=== PATIENT | male | born 1935 ===

== ENCOUNTER 2017-11-11 10:14 | Inpatient (IN) | payer MEDICARE, OTHER ==
[2017-11-11] MEDS ORDERED: SODIUM CHLORIDE 0.9% 1,000 ML IV STA (10:34)
[2017-11-11] MEDS ORDERED: MECLIZINE 12.5 MG TAB PO STA (10:37)
[2017-11-11] MEDS ORDERED: METOCLOPRAMIDE 5 MG/ML 2 ML VIAL IVP STA (10:37)
--- NOTE | 2017-11-11 10:41 | ED ---
General Adult HPI - General Chief complaint: Dizziness Stated complaint: Dizziness/not able to urinate Time Seen by Provider: 11/11/17 10:27 Source: patient, family, RN notes reviewed Mode of arrival: wheelchair Limitations: language barrier (Family is present to help translate) - History of Present Illness Initial comments: Patient is a pleasant 82-year-old male presenting to the emergency department with family for dizziness. Onset was this morning when he woke. Patient feels a spinning type sensation. Patient is and has limited Italian capabilities. Family is present and helps translate. Patient does admit to having headache. There is no confusion. Patient is stating appropriate words. Family states there has been some limited slurred speech. No isolated area of weakness. Patient did seem to have some sort of difficulty with ambulation. - Related Data Home Medications Medication Instructions Recorded Confirmed Carbidopa-Levodopa ER 25-100Mg 1 tab PO TID 11/11/17 11/11/17 [Sinemet ER 25-100] Cholecalciferol (Vitamin D3) 2,000 unit PO DAILY 11/11/17 11/11/17 [Vitamin D3] Clopidogrel [Plavix] 75 mg PO DAILY 11/11/17 11/11/17 Losartan [Cozaar] 50 mg PO DAILY 11/11/17 11/11/17 Pioglitazone [Actos] 15 mg PO DAILY 11/11/17 11/11/17 metFORMIN HCL [Glucophage] 500 mg PO DAILY 11/11/17 11/11/17 Allergies Allergy/AdvReac Type Severity Reaction Status Date / Time No Known Allergies Allergy Verified 11/11/17 13:02 Review of Systems ROS Statement: Those systems with pertinent positive or pertinent negative responses have been documented in the HPI. ROS Other: All systems not noted in ROS Statement are negative. Constitutional: Denies: fever Eyes: Denies: eye pain ENT: Denies: ear pain Respiratory: Denies: cough Cardiovascular: Denies: chest pain Endocrine: Denies: fatigue Gastrointestinal: Denies: abdominal pain Genitourinary: Denies: dysuria Musculoskeletal: Denies: back pain Skin: Denies: rash Neurological: Reports: headache, abnormal gait, vertigo. Denies: weakness, confusion Past Medical History Past Medical History: CVA/TIA, Diabetes Mellitus, Hyperlipidemia, Hypertension History of Any Multi-Drug Resistant Organisms: None Reported Additional Past Surgical History / Comment(s): Prostate surgery in [place] Past Psychological History: No Psychological Hx Reported Smoking Status: Current some day smoker Past Alcohol Use History: None Reported Past Drug Use History: None Reported General Exam Limitations: language barrier General appearance: alert, in no apparent distress Head exam: Present: atraumatic Eye exam: Present: normal appearance, PERRL, EOMI. Absent: nystagmus ENT exam: Present: normal oropharynx Neck exam: Present: normal inspection Respiratory exam: Present: normal lung sounds bilaterally Cardiovascular Exam: Present: regular rate, normal rhythm GI/Abdominal exam: Present: soft. Absent: tenderness Extremities exam: Present: normal inspection Neurological exam: Present: alert, CN II-XII intact. Absent: motor sensory deficit Expanded Patient oriented to: Present: person, place. Absent: time (Family believes this is likely normal for him) Psychiatric exam: Present: normal affect, normal mood Skin exam: Present: normal color Course Vital Signs 11/11/17 11/11/17 10:19 12:55 Temperature 97.8 F Pulse Rate 61 60 Respiratory 18 18 Rate Blood Pressure 136/64 137/67 O2 Sat by Pulse 96 100 Oximetry EKG Findings - EKG Comments: EKG Findings:: Sinus rhythm at 65. First-degree AV block with a NE of 262. QRS 92. QT 424. QTC 440. Normal axis. Borderline inferior Q waves. No acute ST change. Medical Decision Making - Medical Decision Making Patient reevaluated and is having some improvement following medications. Secondary to concerns for slurred speech and abnormal gait patient will be held for neurology evaluation. Case discussed in detail with Dr. Smyth, who will admit. - Lab Data Result diagrams: 11/11/17 11:00 11/11/17 11:00 Lab Results 11/11/17 11/11/17 11/11/17 Range/Units 11:00 11:00 11:00 WBC 3.8 (3.8-10.6) k/uL RBC 4.28 L (4.30-5.90) m/uL Hgb 13.6 (13.0-17.5) gm/dL Hct 40.3 (39.0-53.0) % MCV 94.1 (80.0-100.0) fL MCH 31.9 (25.0-35.0) pg MCHC 33.9 (31.0-37.0) g/dL RDW 12.9 (11.5-15.5) % Plt Count 251 (150-450) k/uL Neutrophils % 56 % Lymphocytes % 31 % Monocytes % 7 % Eosinophils % 3 % Basophils % 0 % Neutrophils # 2.1 (1.3-7.7) k/uL Lymphocytes # 1.2 (1.0-4.8) k/uL Monocytes # 0.3 (0-1.0) k/uL Eosinophils # 0.1 (0-0.7) k/uL Basophils # 0.0 (0-0.2) k/uL PT 9.9 (9.0-12.0) sec INR 1.0 (<1.2) APTT 23.1 (22.0-30.0) sec Sodium 138 (137-145) mmol/L Potassium 4.3 (3.5-5.1) mmol/L Chloride 100 (98-107) mmol/L Carbon Dioxide 27 (22-30) mmol/L Anion Gap 11 mmol/L BUN 19 (9-20) mg/dL Creatinine 0.59 L (0.66-1.25) mg/dL Est GFR (CKD-EPI)AfAm >90 (>60 ml/min/1.73 sqM) Est GFR (CKD-EPI)NonAf >90 (>60 ml/min/1.73 sqM) Glucose 270 H (74-99) mg/dL Calcium 9.4 (8.4-10.2) mg/dL Total Bilirubin 0.5 (0.2-1.3) mg/dL AST 17 (17-59) U/L ALT 23 (21-72) U/L Alkaline Phosphatase 103 (38-126) U/L Total Protein 7.1 (6.3-8.2) g/dL Albumin 4.1 (3.5-5.0) g/dL Disposition Clinical Impression: Transient cerebral ischemia Disposition: ADMITTED IP TO THIS HOSP Is patient prescribed a controlled substance at d/c from ED?: No Referrals: None,Stated [Primary Care Provider] - 1-2 days Decision Time: 13:14
[2017-11-11 11:09] LABS: Basophils % (A) 0 %; Eosinophils # (A) 0.1 k/uL (0-0.7); Eosinophils % (A) 3 %; HCT 40.3 % (39.0-53.0); HGB 13.6 gm/dL (13.0-17.5); Lymphocytes # (A) 1.2 k/uL (1.0-4.8); Lymphocytes % (A) 31 %; MCH 31.9 pg (25.0-35.0); MCHC 33.9 g/dL (31.0-37.0); MCV 94.1 fL (80.0-100.0); Monocytes # (A) 0.3 k/uL (0-1.0); Monocytes % (A) 7 %; Neutrophils # (A) 2.1 k/uL (1.3-7.7); Neutrophils % (A) 56 %; Platelet Count 251 k/uL (150-450); RBC 4.28 m/uL (4.30-5.90); RDW 12.9 % (11.5-15.5); WBC 3.8 k/uL (3.8-10.6)
[2017-11-11 11:17] LABS: Partial Thromboplastin Time 23.1 sec (22.0-30.0); Prothrombin Time 9.9 sec (9.0-12.0)
[2017-11-11 11:22] LABS: ALT 23 U/L (21-72); AST 17 U/L (17-59); Albumin 4.1 g/dL (3.5-5.0); Alkaline Phosphatase 103 U/L (38-126); Anion Gap 11 mmol/L; Blood Urea Nitrogen 19 mg/dL (9-20); Calcium 9.4 mg/dL (8.4-10.2); Carbon Dioxide 27 mmol/L (22-30); Chloride 100 mmol/L (98-107); Glucose 270 mg/dL (74-99); Potassium 4.3 mmol/L (3.5-5.1); Sodium 138 mmol/L (137-145); Total Bilirubin 0.5 mg/dL (0.2-1.3); Total Protein 7.1 g/dL (6.3-8.2)
--- NOTE | 2017-11-11 12:06 | CT ---
EXAMINATION TYPE: CT brain wo con DATE OF EXAM: 11/11/2017 COMPARISON: None HISTORY: 82-year-old male with vertigo, weakness and dizziness. History of recent CVA TECHNIQUE: Examination was done in axial plane without intravenous contrast. Coronal and sagittal r econstructions performed. CT DLP: 1162.8 mGycm Automated exposure control for dose reduction was used. FINDINGS: Large area of encephalomalacia anterior left parietal lobe extending into the posterior left temporal lobe. Additional encephalomalacia within the lateral inferior left frontal lobe. There is central cerebral atrophy with asymmetric greater ventricular enlargement on the left seconda ry to the volume loss. There is no evidence of acute intracranial hemorrhage, acute ischemic changes, mass, mass-effect, or extra-axial fluid collection. There is no effacement of cerebral sulci or basal subarachnoid cister ns. There is no midline shift. Chang-white matter distinction is preserved. Paranasal sinuses and mastoid air cells are well pneumatized. Orbits and globes are intact. IMPRESSION: Large areas of encephalomalacia in the left temporoparietal and left lateral and inferior frontal lob es compatible with prior infarcts. Cerebral atrophy. No acute intracranial abnormality seen.
[2017-11-11] MEDS ORDERED: ASPIRIN 325 MG TAB PO STA (13:15)
--- NOTE | 2017-11-11 14:32 | US ---
EXAMINATION TYPE: US carotid duplex BILAT DATE OF EXAM: 11/11/2017 COMPARISON: NONE CLINICAL HISTORY: Stenosis. weakness, dizziness EXAM MEASUREMENTS: RIGHT: Peak Systolic Velocity (PSV) cm/sec ----- Right CCA: 97.7 ----- Right ICA: 85.3 ----- Right ECA: 87.9 ICA/CCA ratio: 0.9 RIGHT: End Diastole cm/sec ----- Right CCA: 17.5 ----- Right ICA: 23.2 ----- Right ECA: 0.0 LEFT: Peak Systolic Velocity (PSV) cm/sec ----- Left CCA: 83.4 ----- Left ICA: 65.8 ----- Left ECA: 85.6 ICA/CCA ratio: 0.8 LEFT: End Diastole cm/sec ----- Left CCA: 7.6 ----- Left ICA: 7.6 ----- Left ECA: 0.0 VERTEBRALS (direction of flow): Right Vertebral: Antegrade Left Vertebral: Unable to visualize Rhythm: Normal IMPRESSION: There is antegrade flow in the right vertebral artery. No flow seen in the left vertebra l artery which is presumably occluded. Images in measurements suggest less than 20% stenosis in both internal carotid arteries. Criteria for Assigning % of Stenosis / Diameter reduction (Estimation based on the indirect measurements of the internal carotid artery velocities (ICA PSV). 1. Normal (no stenosis)=ICA PSV < 125 cm/s: ratio < 2.0: ICA EDV<40 cm/s. 2. Less than 50% stenosis=ICA PSV < 125 cm/s: ratio < 2.0: ICA EDV<40 cm/s. 3. 50 to 69% stenosis=ICA PSV of 125 to 230 cm/s: ration 2.0 ? 4.0: ICA EDV 40-100 cm/s. 4. Greater than 70% stenosis to near occlusion= ICA PSV > 230 cm/s: ratio > 4.0: ICA EDV > 100 cm/s. 5. Near occlusion= ICA PSV velocities may be low or undetectable: variable ratio and ICA EDV. 6. Total occlusion=unable to detect flow.
[2017-11-11] MEDS: SODIUM CHLORIDE 0.9% 1,000 ML IV SCH (15:28)
[2017-11-11] MEDS: CARBIDOPA-LEVODOPA ER 25-100MG 1 EACH TABLET.ER PO SCH ×2 (15:29→20:48)
[2017-11-11 17:07] LABS: Glucose,Whole Blood 211 mg/dL (75-99)
[2017-11-11] MEDS: INSULIN ASPART 100 UNIT/ML 1 ML 10 ML VIAL SQ SCH ×2 (17:32→20:48)
[2017-11-11 20:36] LABS: Glucose,Whole Blood 203 mg/dL (75-99)
--- NOTE | 2017-11-11 21:53 | P.CNNES ---
History of Present Illness Consult date: 11/11/17 History of Present Illness: The patient is an 82-year-old right-handed male who recently moved from [place] to 8 weeks ago. His daughter is at the bedside as well as his grandson. History is obtained from the patient's grandson who is interpreting the history from his mother who does not speaking wish and the patient himself does not speak Singaporean. Early the patient looked tired yesterday and on his walk to the bathroom he lost control of his bladder. This morning he woke up with dizziness. He didn't feel like eating breakfast. He felt his legs were weak and wobbly. He was not able to walk properly. He had no nausea or vomiting but he felt dizzy. Apparently he felt lightheaded sensation. He also felt some numbness on the chin area around 11 AM today. At 9:30 this morning he developed a headache. The patient was at came to the emergency room and was admitted to the hospital with dizziness. The patient has been very sleepy after receiving some medication in the emergency room. His dizziness went away after the medication was given. Initially the patient was found to have some facial droop according to the daughter but currently that facial droop is gone. The patient has a history of previous left-sided stroke which left him with some right-sided paralysis. The patient had a CT of the brain in the emergency room which showed large areas of encephalomalacia in the left temporoparietal and left lateral and inferior frontal lobes compatible with prior infarcts. There was also cerebral atrophy. No acute an intracranial abnormality was seen. He had a carotid ultrasound today which showed antegrade flow in the right vertebral and no flow in the left vertebral artery. There was less than 20% stenosis in both internal carotid arteries patient has been taking Plavix. Apparently he has been taking this medication regularly without missing a dose according to the daughter. Patient's risk factor for stroke includes diabetes hyperlipidemia hypertension and previous stroke Review of Systems ROS unobtainable: due to mental status Past Medical History Past Medical History: CVA/TIA, Diabetes Mellitus, Hyperlipidemia, Hypertension, Memory Impairment Additional Past Medical History / Comment(s): possibly Parkinsons. recently was with daughter in [place]- son did not receive clear information from [place] family about patient's history History of Any Multi-Drug Resistant Organisms: None Reported Additional Past Surgical History / Comment(s): Prostate surgery in [place] Past Anesthesia/Blood Transfusion Reactions: No Reported Reaction Smoking Status: Current some day smoker - Past Family History Son(s) Additional Family Medical History / Comment(s): had appendix removed- no other issues - still living Medications and Allergies Home Medications Medication Instructions Recorded Confirmed Type Carbidopa-Levodopa ER 25-100Mg 1 tab PO TID 11/11/17 11/11/17 History [Sinemet ER 25-100] Cholecalciferol (Vitamin D3) 2,000 unit PO DAILY 11/11/17 11/11/17 History [Vitamin D3] Clopidogrel [Plavix] 75 mg PO DAILY 11/11/17 11/11/17 History Losartan [Cozaar] 50 mg PO DAILY 11/11/17 11/11/17 History Pioglitazone [Actos] 15 mg PO DAILY 11/11/17 11/11/17 History metFORMIN HCL [Glucophage] 500 mg PO DAILY 11/11/17 11/11/17 History Allergies Allergy/AdvReac Type Severity Reaction Status Date / Time No Known Allergies Allergy Verified 11/11/17 13:02 Physical Examination - Vital Signs Vital Signs: Vital Signs Temp Pulse Pulse Resp BP BP Pulse Ox 11/11/17 20:00 96.9 F L 61 15 147/63 100 11/11/17 15:23 97.4 F L 6 L 16 146/72 100 11/11/17 14:44 65 18 137/67 100 11/11/17 12:55 60 18 137/67 100 11/11/17 10:19 97.8 F 61 18 136/64 96 Intake and Output 11/11/17 11/11/17 11/11/17 06:59 14:59 22:59 Intake Total 500 Output Total 200 Balance 300 Intake: IV 300 Sodium Chloride 0.9% 1, 300 000 ml @ 100 mls/hr IV . Q10H ON LICENSE OF [facility] Rx#:[id number] Oral 200 Output: Urine 200 Other: Voiding Method Urinal Incontinent # Voids 1 Weight 70.76 kg - Constitutional General appearance: average body habitus - EENT EENT: PERRL, hearing intact, vision intact - Respiratory Respiratory: lungs clear - Cardiovascular Cardiovascular: regular rate, normal S1, normal S2 - Integumentary Integumentary: normal - Neurologic Neurologic examination: Mental status: The patient had an filter tip catcher. He was awake and able to give his name and he knew he was at the hospital. He answered questions appropriately. Cranial nerve examination: PERRL, EOMI, VFF, face symmetric, tongue midline Speech examination: other (Patient was able to speak however he was unable to speak Singaporean and had family to interpret) Sensorimotor examination: intact Detailed motor examination: other (Right-sided weakness apparently old from previous stroke) - Psychiatric Psychiatric: cooperative Results - Laboratory Findings CBC and BMP: 11/11/17 11:00 11/11/17 11:00 Abnormal Lab Findings: Abnormal Labs 11/11/17 11/11/17 11/11/17 11:00 11:00 17:00 RBC 4.28 L Creatinine 0.59 L Glucose 270 H POC Glucose (mg/dL) 211 H 11/11/17 20:34 RBC Creatinine Glucose POC Glucose (mg/dL) 203 H Assessment and Plan (1) Transient cerebral ischemia Current Visit: Yes Status: Acute SNOMED Code(s): 227417190 Plan: The patient is an 82-year-old male with history of previous stroke who presents with dizziness. The face patient apparently also had some unsteadiness of gait weakness in the legs facial droop and chin numbness. His dizziness has resolved. His facial droop also has resolved. The chin numbness is gone. And he has not experienced any new weakness. Patient is admitted to the hospital with possible TIA. Patient does have residual right-sided weakness from previous old stroke. The patient had a carotid ultrasound which showed less than 20% stenosis of both internal carotid arteries as well as the no flow in the left vertebral artery which is presumably occluded. It is unclear whether this occlusion is old from previous stroke. Consider vascular surgery consultation regarding vertebral artery occlusion. Will continue Plavix and aspirin for now. Also recommend echocardiogram and follow-up CT brain
[2017-11-12 06:18] LABS: Glucose,Whole Blood 139 mg/dL (75-99)
[2017-11-12] MEDS: INSULIN ASPART 100 UNIT/ML 1 ML 10 ML VIAL SQ SCH ×4 (06:30→21:08)
--- NOTE | 2017-11-12 07:53 | HP ---
HISTORY AND PHYSICAL CHIEF COMPLAINT: Possible CVA. HISTORY OF PRESENT ILLNESS: This is the first admission for this 82-year-old male. He had a CVA last year. He apparently woke up on the morning of admission, having trouble speaking and seemed to be lethargic and confused. He was brought to the emergency room by his family. It was thought that this may represent a TIA. REVIEW OF SYSTEMS: Cannot be obtained from the patient. He has a little bit of difficulty speaking and is not a good communicator. Past medical, family history, personal and social histories reveal that he is on Cozaar, carbidopa levodopa, Plavix, metformin, and Actos. He is not thought to be allergic to anything. The remainder of the history is unobtainable. PHYSICAL EXAM: VITAL SIGNS: Blood pressure 134/64 with a pulse 61, temperature is 97.8. Respirations were 20. GENERAL: In general he appeared to be well developed, well nourished, in no acute distress and somewhat lethargic. HEENT: Head, ears, eyes, nose, mouth, and throat were normal and carotids are normal. NECK: Neck veins not distended. CHEST: Chest is clear. CARDIOVASCULAR: Cardiac exam demonstrated normal sinus rhythm and no murmurs or extra sounds. ABDOMEN: Abdomen is soft, nontender. EXTREMITIES: Normal. NEUROLOGICALLY: Cranial nerves were intact and sensory motor exam as well, but he was a little bit lethargic and seemed to be confused and had some slight expressive aphasia. IMPRESSION: He was admitted to the hospital with diagnoses of: 1. Transient ischemic attack. 2. Possible impending cerebrovascular accident. 3. Previous cerebrovascular accident. 4. Parkinson's disease. 5. Type 2 diabetes mellitus. PLAN: 1. Bed rest. 2. IV fluids. 3. Hemoglobin A1c. 4. Carotid duplex imaging. 5. Echocardiogram. 6. Control blood sugars. 7. Lipid profile. MMODL / IJN: [id number] /
[2017-11-12 08:29] LABS: Cholesterol 141 mg/dL (<200); HDL Cholesterol 43 mg/dL (40-60); LDL Cholesterol,Calculated 70 mg/dL (0-99); Triglycerides 141 mg/dL (<150)
[2017-11-12 08:57] VITALS: BMI 24.9
[2017-11-12 10:21] LABS: Hemoglobin A1C 9.4 % (4.0-6.0)
[2017-11-12] MEDS: CLOPIDOGREL 75 MG TAB PO SCH (10:34)
[2017-11-12] MEDS: LOSARTAN 50 MG TAB PO SCH (10:34)
[2017-11-12] MEDS: PIOGLITAZONE 15 MG TAB PO SCH (10:35)
[2017-11-12] MEDS: SODIUM CHLORIDE 0.9% 1,000 ML IV SCH ×3 (10:35→19:46)
[2017-11-12 11:14] LABS: Glucose,Whole Blood 234 mg/dL (75-99)
[2017-11-12] MEDS: ASPIRIN 325 MG TAB PO SCH (12:08)
[2017-11-12] MEDS: CARBIDOPA-LEVODOPA ER 25-100MG 1 EACH TABLET.ER PO SCH ×3 (12:22→21:09)
--- NOTE | 2017-11-12 13:56 | CT ---
EXAMINATION TYPE: CT brain wo con DATE OF EXAM: 11/12/2017 COMPARISON: 11/11/2017 HISTORY: CVA CT DLP: 980.5 mGycm Automated exposure control for dose reduction was used. FINDINGS: Large area of encephalomalacia anterior left parietal lobe extending into the posterior left temporal lobe. Additional encephalomalacia within the lateral inferior left frontal lobe. There is moderate generalized degenerative change. Area of low attenuation white matter bilaterally i s nonspecific but most typical remote microvascular ischemia. No acute hemorrhage. Ventricular system is slightly greater centrally which may represent a component of normal pressure hydrocephalus. Prominent cisterna magna noted. Changes of chronic sinusitis noted. Calvarium intact. IMPRESSION: DEGENERATIVE AND NONSPECIFIC WHITE MATTER CHANGES MOST TYPICAL REMOTE ISCHEMIA. NO ACUTE HEMORRHAGE. ENCEPHALOMALACIA WITHIN THE LEFT TEMPORAL PARIETAL AND LEFT FRONTAL LOBE SUGGESTIVE OF PREVIOUS INFAR CT. PER-INFARCT RECENT ISCHEMIA NOT EXCLUDED. CORRELATE WITH MRI CLINICALLY WARRANTED.
--- NOTE | 2017-11-12 16:33 | PN ---
PROGRESS NOTE DATE OF SERVICE: 11/12/2017 CHIEF COMPLAINT: TIA. HISTORY OF PRESENT ILLNESS: This gentleman is apparently doing better. Family is at bedside and states that his speech is greatly improved. PHYSICAL EXAM: He has no obvious sensory motor or cranial nerve findings. Carotids normal. Chest is clear. Cardiac exam is normal. IMPRESSION: Transient ischemic attack. PLAN: Continue to workup. MMODL / IJN: [id number] /
[2017-11-12 16:42] LABS: Glucose,Whole Blood 210 mg/dL (75-99)
--- NOTE | 2017-11-12 18:09 | P.PN ---
Subjective Progress Note Date: 11/12/17 The patient is an 82-year-old man with history of prior stroke with right-sided weakness who presented to the hospital with possible TIA. Today the patient is doing much better. His family states his speech is has come back to baseline. He should continue on Plavix daily for stroke prevention. He has had a follow- up CT brain today which showed no changes from prior study. The patient has no new complaints. He has been on Plavix since his previous stroke one year ago which left him with right-sided weakness. Computed tomography scan of the brain does show old infarct on the left hemisphere. Objective - Vital Signs Vital signs: Vital Signs Temp 97.6 F 11/12/17 15:55 Pulse 66 11/12/17 15:55 Resp 18 11/12/17 15:55 BP 131/63 11/12/17 15:55 Pulse Ox 98 11/12/17 15:55 Intake & Output 11/11/17 11/12/17 11/12/17 18:59 06:59 18:59 Intake Total 500 700 Output Total 200 Balance 300 700 Weight 70.76 kg 70 kg 70 kg Intake: IV 300 700 Sodium Chloride 0.9% 1, 300 700 000 ml @ 100 mls/hr IV . Q10H [facility] Rx#:[id number] Oral 200 Output: Urine 200 Other: Voiding Method Urinal Urinal Urinal Incontinent Incontinent Incontinent # Voids 1 1 - Constitutional General appearance: Present: cooperative - EENT Eyes: Present: fundus normal - Respiratory Respiratory: bilateral: CTA - Cardiovascular Rhythm: regular - Neurologic Neurologic: Present: CNII-XII intact - Musculoskeletal Musculoskeletal: Present: right sided weakness - Psychiatric Psychiatric: Present: appropriate affect - Labs CBC & Chem 7: 11/11/17 11:00 11/11/17 11:00 Labs: Abnormal Lab Results - Last 24 Hours (Table) 11/11/17 11/11/17 11/12/17 Range/Units 11:00 20:34 06:07 POC Glucose (mg/dL) 203 H 139 H (75-99) mg/dL Hemoglobin A1c 9.4 H (4.0-6.0) % 11/12/17 11/12/17 Range/Units 11:11 16:39 POC Glucose (mg/dL) 234 H 210 H (75-99) mg/dL Hemoglobin A1c (4.0-6.0) % Assessment and Plan (1) Transient cerebral ischemia Current Visit: Yes Status: Acute SNOMED Code(s): 184397502 Plan: The patient is an 82-year-old male with history of previous stroke who presented with dizziness. The patient also had some unsteadiness of gait weakness in the legs facial droop and chin numbness. His dizziness has resolved. His speech is improved. The patient is doing much better and is also able to walk today. The patient may have had a TIA. Recommend continue patient on Plavix and baby aspirin
[2017-11-12 20:50] LABS: Glucose,Whole Blood 160 mg/dL (75-99)
[2017-11-13 06:25] LABS: Glucose,Whole Blood 169 mg/dL (75-99)
[2017-11-13] MEDS: SODIUM CHLORIDE 0.9% 1,000 ML IV SCH (06:40)
[2017-11-13] MEDS: INSULIN ASPART 100 UNIT/ML 1 ML 10 ML VIAL SQ SCH ×2 (06:40→12:31)
[2017-11-13] MEDS: PIOGLITAZONE 15 MG TAB PO SCH (09:35)
[2017-11-13] MEDS: LOSARTAN 50 MG TAB PO SCH (09:35)
[2017-11-13] MEDS: CARBIDOPA-LEVODOPA ER 25-100MG 1 EACH TABLET.ER PO SCH (09:35)
[2017-11-13] MEDS: CLOPIDOGREL 75 MG TAB PO SCH (09:35)
--- NOTE | 2017-11-13 09:46 | ECHOF ---
Referral Reason:Thrombus MEASUREMENTS -------- HEIGHT: 167.6 cm WEIGHT: 69.9 kg BP: 147/67 RVIDd: 3.1 cm (< 3.3) IVSd: 1.1 cm (0.6 - 1.1) LVIDd: 4.1 cm (3.9 - 5.3) LVPWd: 1.2 cm (0.6 - 1.1) IVSs: 1.6 cm LVIDs: 2.6 cm LVPWs: 1.9 cm LA Diam: 3.6 cm (2.7 - 3.8) LAESV Index (A-L): 32.23 ml/m Ao Diam: 3.2 cm (2.0 - 3.7) AV Cusp: 2.0 cm (1.5 - 2.6) MV EXCURSION: 11.540 mm (> 18.000) MV EF SLOPE: 48 mm/s (70 - 150) EPSS: 0.9 cm MV E Garrett: 0.88 m/s MV DecT: 251 ms MV A Garrett: 1.03 m/s MV E/A Ratio: 0.86 RAP: 5.00 mmHg RVSP: 24.64 mmHg FINDINGS -------- Sinus rhythm. This was a technically good study. The left ventricular size is normal. There is borderline concentric left ventricular hypertrophy. Overall left ventricular systolic function is normal with, an EF between 55 - 60 %. The right ventricle is normal in size. LA is midly dilated 29-33ml/m2. The right atrium is normal in size. The aortic valve is trileaflet and appears structurally normal. The mitral valve is normal. Mild tricuspid regurgitation present. Right ventricular systolic pressure is normal at < 35 mmHg. Trace/mild (physiologic) pulmonic regurgitation. The aortic root size is normal. Normal inferior vena cava with normal inspiratory collapse consistent with estimated right atrial pre ssure of 5 mmHg. There is no pericardial effusion. CONCLUSIONS -------- 1. Sinus rhythm. 2. This was a technically good study. 3. The left ventricular size is normal. 4. There is borderline concentric left ventricular hypertrophy. 5. Overall left ventricular systolic function is normal with, an EF between 55 - 60 %. 6. The right ventricle is normal in size. 7. LA is midly dilated 29-33ml/m2. 8. The right atrium is normal in size. 9. The aortic valve is trileaflet and appears structurally normal. 10. The mitral valve is normal. 11. Mild tricuspid regurgitation present. 12. Right ventricular systolic pressure is normal at < 35 mmHg. 13. Trace/mild (physiologic) pulmonic regurgitation. 14. The aortic root size is normal. 15. Normal inferior vena cava with normal inspiratory collapse consistent with estimated right atrial pressure of 5 mmHg. 16. There is no pericardial effusion. RESIDENTIAL ROOFER HELPER: Stefanie Jones RDCS
[2017-11-13 12:11] LABS: Glucose,Whole Blood 260 mg/dL (75-99)
[2017-11-13 12:54] VITALS: BP 149/74; PULSE 74; RESP 17; TEMP 97.6
--- NOTE | 2017-11-13 17:35 | DS ---
DISCHARGE SUMMARY CHIEF COMPLAINT: TIA. HISTORY OF PRESENT ILLNESS AND PHYSICAL EXAM: Details of this man's history and physical can be found in the initial workup. LABORATORY STUDIES: While he was in a hospital he had laboratory studies, details which can be found in the laboratory section of chart. COURSE IN HOSPITAL: After admission he was placed on bedrest, started on intravenous fluids and frequent monitoring of his neurologic status and vital signs. His function returned to normal. He was doing well. It was felt he could be discharged on the . He will go home and be followed by home care and we will have him follow up in the office in several days. FINAL DIAGNOSES: 1. Transient ischemic attack. 2. Previous cerebrovascular accident. 3. Type 2 diabetes mellitus. OPERATIONS: None. CONSULTATION: None. He is improved. NADINE / SHAY: [id number] /
== END 2017-11-13 13:19 | disposition home health service (06) | DRG 69 ==
LOC: EC 10:14 → 6SEL 13:15
PROVIDERS: ADMIT Family Medicine; ATTEND Family Medicine
DX: G45.9 Transient cerebral ischemic attack, unspecified (principal); I69.351 Hemiplegia and hemiparesis following cerebral infarction affecting right dominant side; G20 Parkinson's disease; G93.89 Other specified disorders of brain; E11.9 Type 2 diabetes mellitus without complications; E78.5 Hyperlipidemia, unspecified; I44.30 Unspecified atrioventricular block; I10 Essential (primary) hypertension; I65.02 Occlusion and stenosis of left vertebral artery; Z79.02 Long term (current) use of antithrombotics/antiplatelets; Z79.84 Long term (current) use of oral hypoglycemic drugs; Z79.899 Other long term (current) drug therapy; F17.200 Nicotine dependence, unspecified, uncomplicated
CPT/HCPCS: 36415; 70450; 80053; 80061; 83036; 85025; 85610; 85730; 93005; 93306; 93880; 96361; 96374; 99285